=== PATIENT | male | born 1990 | race Caucasian/White ===

== ENCOUNTER 2018-12-26 07:56 | Emergency (ER) | payer SELFPAY ==
[~2018-12-26] VITALS: Ht 185.4 cm; Wt 81.6 kg
[~2018-12-26 07:56] MED LIST: NAPR-915 PO
--- NOTE | 2018-12-26 08:00 | NUR ---
MEAL TRAY AND ORANGE JUICE TO PT AT THIS TIME.
[2018-12-26 08:15] LABS: BASOPHILS % (AUTO) 0 % (0-10); EOSINOPHILS # (AUTO) 0.3 10^3/uL (0.0-0.3); EOSINOPHILS % (AUTO) 3 % (0-10); HEMATOCRIT 45 % (40-54); HEMOGLOBIN 15.6 G/DL (13.3-17.7); LYMPHOCYTES # (AUTO) 2.8 X 10^3 (1.0-4.0); LYMPHOCYTES % (AUTO) 29 % (12-44); MEAN CORPUSCULAR HEMOGLOBIN 31 PG (25-34); MEAN CORPUSCULAR HGB CONC 35 G/DL (32-36); MEAN CORPUSCULAR VOLUME 88 FL (80-99); MEAN PLATELET VOLUME 10.2 FL (7.4-10.4); MONOCYTES # (AUTO) 0.9 X 10^3 (0.0-1.0); MONOCYTES % (AUTO) 9 % (0-12); NEUTROPHILS # (AUTO) 5.5 X 10^3 (1.8-7.8); NEUTROPHILS % (AUTO) 58 % (42-75); PLATELET COUNT 249 10^3/uL (130-400); RED CELL DISTRIBUTION WIDTH 12.3 % (10.0-14.5); WHITE BLOOD COUNT 9.4 10^3/uL (4.3-11.0)
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
[2018-12-26 08:32] LABS: ALANINE AMINOTRANSFERASE 21 U/L (0-55); ALBUMIN 4.4 GM/DL (3.2-4.5); ALKALINE PHOSPHATASE 72 U/L (40-136); BILIRUBIN,TOTAL 1.4 MG/DL (0.1-1.0); BUN/CREATININE RATIO 13; CALCIUM 9.6 MG/DL (8.5-10.1); CARBON DIOXIDE 21 MMOL/L (21-32); CHLORIDE 105 MMOL/L (98-107); CREATININE SERUM 1.15 MG/DL (0.60-1.30); GFR ESTIMATED > 60; GLUCOSE 63 MG/DL (70-105); POTASSIUM 3.4 MMOL/L (3.6-5.0); SODIUM 140 MMOL/L (135-145); TOTAL PROTEIN 7.2 GM/DL (6.4-8.2)
--- NOTE | 2018-12-26 08:54 | Diagnostic Imaging Report ---
EXAM: CHEST 1 VIEW, AP/PA ONLY INDICATION: Fatigue. Hypoglycemia. COMPARISON: None. FINDINGS: Normal heart size and pulmonary vascularity. No dense consolidation, pleural effusion or pneumothorax. No acute osseous findings. IMPRESSION: Negative chest. Dictated by: Dictated on workstation # [id number]
--- NOTE | 2018-12-26 09:26 | NUR ---
PT GRANDMOTHER CONTACTED AT THIS. REPORTS SHE WILL TRY TO MAKE ARRANGEMENTS TO COME GET HIM.
[2018-12-26 09:57] LABS: BILIRUBIN,URINE NEGATIVE (NEGATIVE); CLARITY,URINE VERY CLOUDY; COLOR,URINE AMBER; GLUCOSE, URINE (UA) NEGATIVE (NEGATIVE); KETONES,URINE 4+ (NEGATIVE); LEUKOCYTE ESTERASE ,URINE 1+ (NEGATIVE); NITRITE,URINE NEGATIVE (NEGATIVE); PH,URINE 5 (5-9); PROTEIN,URINE 2+ (NEGATIVE); UROBILINOGEN,URINE NORMAL (NORMAL)
[2018-12-26 10:05] LABS: BACTERIA,URINE FEW /HPF; RBC,URINE >100 /HPF
[2018-12-26 10:06] LABS: URINE OTHER MOD SPERM /HPF
[2018-12-26 10:09] LABS: AMPHETAMINE SCREEN, URINE POSITIVE (NEGATIVE); BARBITURATE SCREEN URINE NEGATIVE (NEGATIVE); BENZODIAZEPINES SCREEN URINE NEGATIVE (NEGATIVE); CANNABINOID SCREEN, URINE POSITIVE (NEGATIVE); COCAINE SCREEN URINE NEGATIVE (NEGATIVE); METHADONE STAT NEGATIVE (NEGATIVE); METHAMPHETAMINE SCREEN URINE S NEGATIVE (NEGATIVE); OPIATE SCREEN URINE NEGATIVE (NEGATIVE); OXYCODONE STAT NEGATIVE (NEGATIVE); PROPOXYPHENE STAT NEGATIVE (NEGATIVE); TRICYCLIC ANTIDEPRESSANTS SCRE NEGATIVE (NEGATIVE)
[2018-12-26 10:27] VITALS: BP 115/71
== END 2018-12-26 10:27 | disposition home or self-care (01) ==
LOC: EDUNIT# 07:56 → ER 08:00
DX: F19.10 Other psychoactive substance abuse, uncomplicated (principal); F15.10 Other stimulant abuse, uncomplicated; Z88.0 Allergy status to penicillin; Z90.49 Acquired absence of other specified parts of digestive tract; Z77.128 Contact with and (suspected) exposure to other hazards in the physical environment
CPT/HCPCS: 36415; 71045; 80053; 80306; 81000; 82962; 85025; 87088

== ENCOUNTER → 2019-08-25 | Outpatient (CLI) | payer SELFPAY ==
--- NOTE | 2019-08-25 11:51 | Diagnostic Imaging Report ---
PROCEDURE: CT sinuses without contrast TECHNIQUE: Multiple contiguous axial images were obtained through the sinuses without the use of intravenous contrast. Coronal and sagittal reformations were then performed. Auto Exposure Controls were utilized during the CT exam to meet ALARA standards for radiation dose reduction. All CT scans use one or more of the following dose optimizing techniques: automated exposure control, MA and/or KvP adjustment based on patient size and exam type or iterative reconstruction. INDICATION: History of nasal polyps and surgery. FINDINGS: There is complete opacification of the frontal sinus. There is complete opacification of ethmoid air cells with near complete opacification of the sphenoid sinus. Bilateral maxillary sinuses are nearly completely opacified. There has been resection of the medial palafox of the maxillary sinuses. Soft tissue is identified in the nasal cavity which may represent polyps. The nasal septum is deviated to the left. Mastoids are well aerated. IMPRESSION: Pansinusitis. There is some thickening of the sinus palafox consistent with a chronic process. There may be nasal polyps present as well. Dictated by: Dictated on workstation # [id number]
== END ==
LOC: RAD 10:39
PROVIDERS: ATTEND Nurse Practitioner Family
DX: J32.4 Chronic pansinusitis (principal); J34.89 Other specified disorders of nose and nasal sinuses
CPT/HCPCS: 70486

== ENCOUNTER 2023-02-20 08:26 | Emergency (ER) | payer OTHER ==
[~2023-02-20] VITALS: Ht 190 cm; Wt 92.9 kg
[2023-02-20] MEDS ORDERED: NS IV 1000 ML 1,000 ML IV STA (08:39)
[2023-02-20] MEDS ORDERED: TETANUS,DIPTH,PERTUSS P/F (BOOSTRIX) 0.5 ML VIAL IM ONE (08:45)
[2023-02-20 08:55] LABS: POTASSIUM 3.6 MMOL/L (3.6-5.0)
[2023-02-20 08:56] LABS: CALCIUM 9.4 MG/DL (8.5-10.1)
[2023-02-20 09:00] LABS: CREATININE SERUM 1.03 MG/DL (0.60-1.30)
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
[2023-02-20] MEDS ORDERED: CEPH500T PO (09:52)
[2023-02-20] MEDS ORDERED: ACHD5005 PO (09:52)
[2023-02-20] MEDS ORDERED: NAPR-915 PO (09:52)
[2023-02-20] MEDS ORDERED: ACETAMINOPHEN 325 MG TABLET PO ONE (10:00)
[2023-02-20] MEDS ORDERED: HYDROcodone/APAP 5 MG/325 MG (LORTAB) TAB PO ONE (10:00)
[2023-02-20 10:18] VITALS: BP 134/76
== END 2023-02-20 10:19 | disposition home or self-care (01) ==
LOC: EDUNIT# 08:26 → ER 08:27
DX: R55 Syncope and collapse (principal); K03.81 Cracked tooth; F17.210 Nicotine dependence, cigarettes, uncomplicated; Z28.310 Unvaccinated for COVID-19; Z88.0 Allergy status to penicillin
CPT/HCPCS: 36415; 80048; 90715